=== PATIENT | male | born 1995 | race Caucasian/White ===

== ENCOUNTER 2021-12-19 00:43 | Emergency (ER) | payer OTHER ==
[2021-12-19] MEDS ORDERED: Lidocaine 1% PF 5 ML VIAL ONE (01:57)
[2021-12-19] MEDS ORDERED: Ibuprofen 200 MG TAB ONE (03:16)
[2021-12-19] MEDS ORDERED: Amoxicillin/Potassium Clav 875 MG TAB ONE (03:16)
== END 2021-12-19 03:28 | disposition home or self-care (01) ==
LOC: ERS 00:43
DX: S01.551A Open bite of lip, initial encounter (principal); S01.511A Laceration without foreign body of lip, initial encounter; I10 Essential (primary) hypertension; W54.0XXA Bitten by dog, initial encounter
CPT/HCPCS: 12013